=== PATIENT | female | born 1990 | race Caucasian/White ===

== ENCOUNTER 2023-06-17 14:36 | Emergency (ER) | payer BC, SELFPAY ==
[2023-06-17 14:45] VITALS: BP 139/79; PULSE 75; RESP 18; TEMP 36.9; O2SAT 99
--- NOTE | 2023-06-17 16:58 | ED.HA ---
HPI - Headache General Chief Complaint: Headache Stated Complaint: migraine x 1 week Time Seen by Provider: 06/17/23 16:03 History of Present Illness HPI Narrative: patient presents the emergency department with a headache. She has had a headache intermittent for the past 5 days. She has also had nausea and chills. She thought she had a fever but was negative. Has been taken Tylenol at home without improvement. Denies all other positive review of systems Related Data Allergies Allergy/AdvReac Type Severity Reaction Status Date / Time methylphenidate Allergy Anaphylaxis Verified 06/17/23 16:03 [From Ritalin] Review of Systems Review of Systems: negative except what is documented in the HPI Exam Narrative: GENERAL: Well-appearing, well-nourished, and in no acute distress. HEAD: Normocephalic, atraumatic. EYES: PERRLA and EOMI. ENT: Nares clear, no rhinorrhea or epistaxis. Mucous membranes moist. NECK: Supple. CHEST: Clear to auscultation. No respiratory distress. HEART: Regular rate and rhythm. ABDOMEN: Soft, nontender, nondistended. EXTREMITIES: Normal range of motion. No edema. SKIN: Warm, dry, no rash. NEURO: No focal deficits. Alert and oriented x3. PSYCH: Normal mood and affect. Course Vital Signs Vital signs: Vital Signs Temperature 36.9 C 06/17/23 14:45 Pulse Rate 75 06/17/23 14:45 Respiratory Rate 18 06/17/23 14:45 Blood Pressure 139/79 06/17/23 14:45 Pulse Oximetry 99 06/17/23 14:45 Oxygen Delivery Room Air 06/17/23 14:45 Temperature 36.5 C 06/17/23 18:53 Pulse Rate 63 06/17/23 18:53 Respiratory Rate 18 06/17/23 18:53 Blood Pressure 113/77 06/17/23 18:53 Pulse Oximetry 100 06/17/23 18:53 Oxygen Delivery Room Air 06/17/23 14:45 MDM - Headache Lab Data Labs: Lab Results 06/17/23 Range/Units 17:08 Influenza A (RT-PCR) Negative (Negative) Influenza B (RT-PCR) Negative (Negative) RSV (RT-PCR) Negative (Negative) SARS-CoV-2 RNA (RT-PCR) Negative (Negative) Discharge Plan Discharge Clinical Impression: Headache Patient Disposition: Home, Self-Care Condition: Stable Instructions: Acute Headache (ED) Prescriptions: New [id number] [Fioricet] 50-300-40 mg capsule 1 cap PO Q8H PRN (Reason: pain) Qty: 20 0RF Follow-up/Referrals: PHYSICIAN,[facility] [Primary Care Provider] - Time of Disposition: 20:15
[2023-06-17] MEDS: ACETAMINOPHEN 325 MG TABLET 650 MG PO (17:11)
[2023-06-17] MEDS: METOCLOPRAMIDE HCL 10 MG TABLET PO (17:12)
[2023-06-17] MEDS: KETOROLAC (*BKC) 60 MG/2 ML VIAL IM (17:12)
[2023-06-17] MEDS: diphenhydrAMINE HCl CAP 25 MG CAPSULE PO (17:12)
[2023-06-17 17:50] LABS: Influenza A QL RT-PCR Negative (Negative); Influenza B QL RT-PCR Negative (Negative); RSV RNA, RT-PCR Negative (Negative); SARS-CoV-2 RNA PCR Negative (Negative)
[2023-06-17 18:53] VITALS: BP 113/77; PULSE 63; RESP 18; TEMP 36.5; O2SAT 100
[2023-06-17] MEDS: ACETAMINOPHEN/BUTALBITAL/CAFFEINE 325-50-40 MG TABLET (FIORICET) 1 TAB PO (19:39)
[2023-06-17 20:45] VITALS: BP 116/73; PULSE 70; RESP 17; O2SAT 98
== END 2023-06-17 20:46 | disposition home or self-care (01) ==
PROVIDERS: Emergency Provider Emergency Medicine
DX: R51.9 Headache, unspecified (principal); Z20.822 Contact with and (suspected) exposure to COVID-19
CPT/HCPCS: 87637; 96372; 99283; A9270; J1885

== ENCOUNTER 2024-04-01 16:56 | Emergency (ER) | payer OTHER, SELFPAY ==
--- NOTE | 2024-04-01 17:08 | ED.URI ---
HPI - URI/Sore Throat General Chief Complaint: Upper Respiratory Infection Stated Complaint: Fever/Sore Throat Time Seen by Provider: 04/01/24 16:59 Source: patient Mode of arrival: ambulatory Limitations: no limitations History of Present Illness HPI Narrative: Patient is a 34-year-old female that presents with fever, sore throat, chills, headaches, body aches that started yesterday. Denies any nausea, vomiting, diarrhea, congestion, cough, ear pain. Has not take anything for symptoms. Denies any known contacts that are sick. Related Data Allergies Allergy/AdvReac Type Severity Reaction Status Date / Time methylphenidate Allergy Anaphylaxis Verified 06/17/23 16:03 [From Ritalin] Review of Systems Review of Systems: All systems reviewed & are unremarkable except as noted in HPI and below Constitutional: Constitutional: Reports body ache(s), Reports chills, Denies fatigue, Reports fever(s), Reports headache(s), Denies malaise and Denies weakness Eyes: Eyes: Denies blurry vision, Denies itchy eyes and Denies loss of vision ENT: Denies otalgia, Denies headache(s), Reports nasal congestion, Denies sinus pain and Reports sore throat Cardiovascular: Cardiovascular: Denies chest pain, Denies irregular heart rhythm and Denies dyspnea Respiratory: Respiratory: Denies cough and Denies dyspnea Gastrointestinal: Gastrointestinal: Denies abdominal pain, Denies diarrhea, Denies nausea and Denies vomiting Musculoskeletal: Musculoskeletal: Denies back pain, Reports myalgias and Denies arthralgias Integumentary/Breasts: Skin/Breast: Denies pruritus and Denies rash Neurologic: Reports headache(s), Denies loss of vision and Denies weakness Psychiatric: Psychiatric: Reports no additional psychiatric complaints Endocrine: Endocrine: Denies fatigue Allergic/Immunologic: Allergic/Immunologic: Denies itchy eyes PMFSH Comments At time of signature, agree with nursing past medical, surgical, social and family history. There is no relevant family history pertinent to the presenting complaint. Exam Const: General: cooperative, healthy appearing, comfortable, no acute distress and well nourished Nutritional Appearance: well nourished Orientation/consciousness: patient oriented x3 Limitations: no limitations HENMT: Head: normal to inspection, normocephalic and atraumatic Ears: hearing grossly normal bilaterally, external ears normal, TM's normal bilaterally, EAC's normal and no periauricular adenopathy Face/Nose/Sinus: Normal external nose present, Abnormal mucous membranes and turbinates present erythematous bilateral and diffuse, normal facial exam, sinuses nontender and face symmetric Face and sinus: normal facial exam, sinuses nontender and face symmetric Mouth: Yes Normal oral and palatal mucosa present, Yes lip normal, Yes tongue normal, Yes Normal salivary glands and ducts present, Yes oropharynx normal and Yes moist mucous membranes Teeth and gingiva: dentition normal Throat: posterior oropharynx normal, tonsils normal and uvula midline Eyes: General: appearance normal, both eyes and all related structures Alignment and Position: alignment normal and position normal Periorbital: periorbital findings normal Eyelids: eyelids normal Pupils: Equal, round and reactive pupils present Neck: Neck: normal visual inspection, full ROM, no lymphadenopathy and supple Chest: Chest palpation & inspection: normal inspection of the chest and normal palpation of entire chest wall Resp: Effort & Inspection: normal respiratory effort and able to speak in complete sentences Auscultation: clear to auscultation bilaterally, no crackles, no rales, no rhonchi and no wheezes Cardio: Rate: regular rate Rhythm: regular rhythm Heart sounds: S1 normal heart sound present and S2 normal heart sound present GI: Inspection: normal to inspection Skin: General skin exam: normal color and no rashes or lesions noted Neuro: General: patient oriented x
[2024-04-01 17:10] VITALS: BP 148/87; PULSE 83; RESP 20; TEMP 37.1; O2SAT 100
[2024-04-01 17:27] LABS: EDCOVIDSCREEN Positive (Negative); EDINFLUASCREEN Negative (Negative); EDINFLUBSCREEN Negative (Negative); EDSTREPNEGPOS1 Negative (Negative)
== END 2024-04-01 18:01 | disposition home or self-care (01) ==
PROVIDERS: Emergency Provider Nurse Practitioner Family; PCP Family Medicine
DX: U07.1 COVID-19 (principal)
CPT/HCPCS: 87081; 87426; 87804; 87880; 99213; G0463